=== PATIENT | male | born 1960 | race Caucasian/White ===

== ENCOUNTER 2017-04-24 11:44 | Inpatient (IN) | payer OTHER ==
[~2017-04-24] VITALS: Ht 185.4 cm; Wt 156.9 kg
[2017-04-24] MEDS ORDERED: ELIQUIS5 MG PO (12:00)
[2017-04-24] MEDS ORDERED: LIPI10 PO (12:00)
[2017-04-24] MEDS ORDERED: METFORMIN HCL500 MG PO (12:00)
[2017-04-24] MEDS ORDERED: RIZATRIPTAN BEN10 MG PO (12:01)
[2017-04-24 12:14] LABS: BASOPHIL % 0.2 % (0-2); PLATELET COUNT 318 x10^3mcL (130-400); RED CELL DISTRIBUTION WIDTH 14.8 % (11.5-14.5)
[2017-04-24 12:39] LABS: CALCIUM 9.1 mg/dL (8.5-10.1); CARBON DIOXIDE 24.1 mmol/L (21-32); CHLORIDE SERUM 101 mmol/L (98-107); CREATININE SERUM 0.9 mg/dL (0.7-1.3); GFR1 > 60 mL/min; GLUCOSE SERUM 217 mg/dL (74-106); SODIUM SERUM 136 mmol/L (136-145)
[2017-04-24 12:44] LABS: ALBUMIN 3.4 g/dL (3.4-5.0); ALKALINE PHOSPHATASE 170 U/L (46-116); ALT/SGPT 29 U/L (16-63); AST/SGOT 20 U/L (15-37); CHOLESTEROL 158 mg/dL (<200); TOTAL PROTEIN, SERUM 7.9 g/dL (6.4-8.2)
[2017-04-24 14:42] LABS: T3 TOTAL 1.12 ng/mL
[2017-04-24 15:12] LABS: CHOLESTEROL/HDL RATIO 3.3; MAGNESIUM 1.8 mg/dL (1.8-2.4); PHOSPHOROUS 3.1 mg/dL (2.5-4.9)
[2017-04-24 15:20] LABS: FREE T4 1.22 ng/dL (0.76-1.46); FREE THYROXINE INDEX 2.7 ug/dL (1.4-4.5); T4(THYROXINE) 8.4 ug/dL (4.7-13.3)
[2017-04-24] MEDS ORDERED: DILANTIN100 MG PO (15:49)
[2017-04-24] MEDS ORDERED: ASPIR 8181 MG PO (15:51)
[2017-04-24 16:03] VITALS: BP 118/71
[2017-04-24 18:25] VITALS: BP 118/71
[2017-04-24 22:03] VITALS: BP 134/75
[2017-04-25 07:02] VITALS: BP 131/69
[2017-04-25 08:35] LABS: microscopic required? YES; urine erythrocyte NEGATIVE (NEGATIVE)
[2017-04-25 09:04] LABS: AMPHETAMINE QUAL UR NONE DETECTED (NEG <=1000)
[2017-04-25 09:47] LABS: BASOPHIL % 0.4 % (0-2); PLATELET COUNT 240 x10^3mcL (130-400)
[2017-04-25 09:54] VITALS: BP 115/63
[2017-04-25 09:56] LABS: CALCIUM 8.5 mg/dL (8.5-10.1); CARBON DIOXIDE 24.4 mmol/L (21-32); CHLORIDE SERUM 103 mmol/L (98-107); GFR1 > 60 mL/min; GLUCOSE SERUM 174 mg/dL (74-106); PHOSPHOROUS 4.6 mg/dL (2.5-4.9); POTASSIUM SERUM 4.5 mmol/L (3.5-5.1); SODIUM SERUM 136 mmol/L (136-145)
[2017-04-25 10:21] LABS: RED CELL DISTRIBUTION WIDTH 14.9 % (11.5-14.5)
[2017-04-25 12:39] VITALS: BP 128/71
[2017-04-25] MEDS ORDERED: COL100 PO (14:35)
[2017-04-25] MEDS ORDERED: APAP/HYDROCODON1 T13 PO (14:35)
[2017-04-25 15:54] VITALS: BP 128/71
== END 2017-04-25 16:37 | disposition home or self-care (01) | DRG 102 ==
LOC: ED 11:44 → DU 13:54 → MU 13:54 → DU 15:45 → MU 04-25 11:23
PROVIDERS: Specialist; ADMIT Family Medicine
DX: G43.909 Migraine, unspecified, not intractable, without status migrainosus (principal); N17.0 Acute kidney failure with tubular necrosis; Z68.42 Body mass index [BMI] 45.0-49.9, adult; E11.65 Type 2 diabetes mellitus with hyperglycemia; E11.51 Type 2 diabetes mellitus with diabetic peripheral angiopathy without gangrene; G40.909 Epilepsy, unspecified, not intractable, without status epilepticus; E78.5 Hyperlipidemia, unspecified; E66.01 Morbid (severe) obesity due to excess calories; Z86.711 Personal history of pulmonary embolism; Z86.718 Personal history of other venous thrombosis and embolism; Z89.611 Acquired absence of right leg above knee; Z95.828 Presence of other vascular implants and grafts; Z79.82 Long term (current) use of aspirin; Z79.84 Long term (current) use of oral hypoglycemic drugs
CPT/HCPCS: 36600; 83880; 84439; 97530-GP; C9113; G0480; J1170; J1885; J2060; J2270; J2405; J3010; J7030; J7620; Q0092